=== PATIENT | male | born 1965 | race Caucasian/White ===

== ENCOUNTER → 2016-04-28 | Outpatient (REF) | payer OTHER ==
[~2016-04-28] MED LIST: ATOR40TA PO; CYCL10TA PO; GI COCKTAIL PO; IMIT50TA INJ; LISI-538 PO; LORT5TAB PO; MELO15TA4 PO; MELO7.5S PO; NAPR500T2 PO; NASA0.057; NORCOTAB PO; PAME25CA PO; PERCOCET PO; PRIL40CA PO; PROA1AER INH; SUCR1TA PO; SUMA20SP; TOPA50TA7 PO; TYLE650T30 PO; ZEST1TAB7 PO
== END ==
LOC: M LAB REF 16:15
PROVIDERS: ATTEND Physician Assistant
DX: Z11.3 Encounter for screening for infections with a predominantly sexual mode of transmission (principal)

== ENCOUNTER → 2016-07-10 | Outpatient (REF) | payer OTHER | LOC: M SFHCPLAZ 16:58 | PROVIDERS: ATTEND Family Medicine | DX: R23.4 Changes in skin texture (principal); L85.8 Other specified epidermal thickening ==

== ENCOUNTER → 2016-08-17 | Outpatient (REF) | payer OTHER | LOC: M LABNEURO 11:30 | PROVIDERS: ATTEND Family Medicine | DX: M62.89 Other specified disorders of muscle (principal) ==

== ENCOUNTER → 2016-08-17 | Outpatient (REF) | payer OTHER ==
[2016-08-17 11:55] LABS: INR 0.91
== END ==
LOC: M LABNEURO 11:31
PROVIDERS: ATTEND Physical Medicine & Rehabilitation
DX: Z01.818 Encounter for other preprocedural examination (principal); M50.31 Other cervical disc degeneration, high cervical region

== ENCOUNTER → 2016-10-14 | Outpatient (REF) | payer OTHER | LOC: M LABNEURO 15:29 | PROVIDERS: ATTEND Family Medicine | DX: E29.1 Testicular hypofunction (principal) ==

== ENCOUNTER → 2016-10-16 | Outpatient (CLI) | payer OTHER ==
--- NOTE | 2016-10-16 16:21 | REP ---
There are four views of a single digit of the left hand. There is an indicator identifying the location of the soft tissue injury. There is no fracture or dislocation. There is no foreign body. There are small accessory ossicles at the medial lateral margins of the DIP articulation. Mineralization and joint spaces are unremarkable. Impression: Essentially negative single digit of the left hand. Signed by Jake Lester MD 10/16/2016 04:13 P
== END ==
LOC: M LAB 15:43 → M RAD 15:44
PROVIDERS: ATTEND Family Medicine
DX: S69.92XA Unspecified injury of left wrist, hand and finger(s), initial encounter (principal); X58.XXXA Exposure to other specified factors, initial encounter; Y92.9 Unspecified place or not applicable

== ENCOUNTER → 2017-01-04 | Outpatient (REF) | payer OTHER ==
[~2017-01-04] MED LIST changes: -ATOR40TA PO; +ATOR40TA75 PO; -NAPR500T2 PO; +NAPR500T3 PO; +NASA0.0517; -NASA0.057; -PROA1AER INH; +PROAAER10 INH; -TOPA50TA7 PO; +TOPA50TA8 PO
== END ==
LOC: M SFHCPLAZ 08:14
PROVIDERS: ATTEND Nurse Practitioner Family
DX: E29.1 Testicular hypofunction (principal)

== ENCOUNTER → 2017-01-11 | Outpatient (REF) | payer OTHER ==
[2017-01-11 14:05] LABS: ANION GAP 8 MEQ/L (8-16); BLOOD UREA NITROGEN 21 MG/DL (7-18); CALCIUM LEVEL 8.4 MG/DL (8.5-10.1); CARBON DIOXIDE LEVEL 25 MEQ/L (21-32); CHLORIDE LEVEL 109 MEQ/L (98-107); CREATININE FOR GFR 1.32 MG/DL (0.70-1.30); GLOMERULAR FILTRATION RATE > 60.0 (>60); GLUCOSE, FASTING 89 MG/DL (70-105); MAGNESIUM LEVEL 2.4 MG/DL (1.8-2.4); POTASSIUM SERUM 4.5 MEQ/L (3.5-5.1); SODIUM LEVEL 142 MEQ/L (136-145)
[2017-01-11 14:42] LABS: FOLATE 18.4 NG/ML; VITAMIN B12 LEVEL 445 PG/ML
== END ==
LOC: M LABNEURO 11:47 → M SFHCPLAZ 11:47
PROVIDERS: ATTEND Family Medicine
DX: R20.2 Paresthesia of skin (principal)

== ENCOUNTER → 2017-04-16 | Outpatient (REF) | payer OTHER | LOC: M SFHCPLAZ 15:25 | PROVIDERS: ATTEND Family Medicine | DX: C44.519 Basal cell carcinoma of skin of other part of trunk (principal); L57.0 Actinic keratosis ==

== ENCOUNTER → 2017-05-14 | Outpatient (REF) | payer OTHER | LOC: M LAB REF 18:14 | DX: C44.599 Other specified malignant neoplasm of skin of other part of trunk (principal) | CPT/HCPCS: 88305 ==

== ENCOUNTER 2017-05-23 06:32 | Emergency (ER) | payer OTHER ==
[2017-05-23 07:57] LABS: BASO % 0.1 % (0.0-1.0); EOS # 0.1 10^3/uL (0.0-0.50); EOS % 0.7 % (0.0-3.0); HEMATOCRIT 40.9 % (42.0-52.0); HEMOGLOBIN 14.1 g/dl (14.0-18.0); IMMATURE GRANULOCYTE % 0.3 % (0-0); LYMPH # 1.4 10^3/uL (1.5-4.5); LYMPH % 20.4 % (24.0-44.0); MEAN CORPUSCULAR HEMOGLOBIN 32.6 pg (27.0-33.0); MEAN CORPUSCULAR HGB CONC 34.5 g/dl (32.0-36.5); MEAN CORPUSCULAR VOLUME 94.5 fl (80.0-96.0); MONO # 1.2 10^3/uL (0.0-0.8); MONO % 17.2 % (0.0-5.0); NEUTROPHILS # 4.3 10^3/uL (1.8-7.7); NEUTROPHILS % 61.3 % (36.0-66.0); PLATELET COUNT, AUTOMATED 228 10^3/uL (150-450); RED BLOOD COUNT 4.33 10^6/uL (4.30-6.10); RED CELL DISTRIBUTION WIDTH 13.9 % (11.5-14.5)
[2017-05-23] MEDS: KETOROLAC 30 MG/ML VIAL (J1885) IV (07:58)
[2017-05-23] MEDS: METOCLOPRAMIDE INJ 10MG/2ML VIAL (J2765) IV (07:58)
[2017-05-23 08:16] LABS: ANION GAP 6 MEQ/L (8-16); BLOOD UREA NITROGEN 12 MG/DL (7-18); C REACTIVE PROTEIN QUANTITATIV 1.18 MG/DL (0.00-0.30); CALCIUM LEVEL 8.6 MG/DL (8.5-10.1); CARBON DIOXIDE LEVEL 26 MEQ/L (21-32); CHLORIDE LEVEL 108 MEQ/L (98-107); CREATININE FOR GFR 1.16 MG/DL (0.70-1.30); GLOMERULAR FILTRATION RATE > 60.0 (>60); GLUCOSE, FASTING 108 MG/DL (70-100); SODIUM LEVEL 140 MEQ/L (136-145)
[2017-05-23 08:20] LABS: ERYTHROCYTE SEDIMENTATION RATE 13 mm/hr (0-15)
[2017-05-23] MEDS ORDERED: ISOVUE-370 76% 100ML VIAL (Q9967) As Ordered (08:22)
[2017-05-23] MEDS: MORPHINE 4 MG/ML 1ML SYRINGE IV (08:26)
== END 2017-05-23 09:57 | disposition home or self-care (01) ==
LOC: M ED 06:32
DX: K08.89 Other specified disorders of teeth and supporting structures (principal); F41.9 Anxiety disorder, unspecified; F33.9 Major depressive disorder, recurrent, unspecified; Z85.820 Personal history of malignant melanoma of skin; Z79.899 Other long term (current) drug therapy
CPT/HCPCS: Q9967

== ENCOUNTER → 2017-06-22 | Outpatient (REF) | payer MEDICAID ==
[2017-06-22 19:20] LABS: BASO # 0.1 10^3/uL (0.0-0.2); BASO % 0.6 % (0.0-1.0); EOS # 0.2 10^3/uL (0.0-0.50); EOS % 2.6 % (0.0-3.0); HEMOGLOBIN 14.5 g/dl (14.0-18.0); IMMATURE GRANULOCYTE % 1.2 % (0-3.0); LYMPH # 2.1 10^3/uL (1.5-4.5); LYMPH % 27.1 % (24.0-44.0); MEAN CORPUSCULAR HEMOGLOBIN 31.8 pg (27.0-33.0); MEAN CORPUSCULAR VOLUME 96.5 fl (80.0-96.0); MONO # 0.8 10^3/uL (0.0-0.8); MONO % 10.2 % (0.0-5.0); NEUTROPHILS # 4.5 10^3/uL (1.8-7.7); NEUTROPHILS % 58.3 % (36.0-66.0); PLATELET COUNT, AUTOMATED 338 10^3/uL (150-450); RED BLOOD COUNT 4.56 10^6/uL (4.30-6.10); RED CELL DISTRIBUTION WIDTH 12.9 % (11.5-14.5); WHITE BLOOD COUNT 7.8 10^3/uL (4.0-10.0)
[2017-06-22 19:42] LABS: ALBUMIN 4.1 GM/DL (3.2-5.2); ALBUMIN/GLOBULIN RATIO 1.05 (1.00-1.93); ALKALINE PHOSPHATASE 132 U/L (45-117); ALT/SGPT 38 U/L (12-78); ANION GAP 8 MEQ/L (8-16); AST/SGOT 20 U/L (7-37); BILIRUBIN,TOTAL 0.3 MG/DL (0.2-1.0); BLOOD UREA NITROGEN 22 MG/DL (7-18); CALCIUM LEVEL 9.4 MG/DL (8.5-10.1); CARBON DIOXIDE LEVEL 28 MEQ/L (21-32); CHLORIDE LEVEL 105 MEQ/L (98-107); CREATININE FOR GFR 1.05 MG/DL (0.70-1.30); GLOMERULAR FILTRATION RATE > 60.0 (>60); GLUCOSE, FASTING 79 MG/DL (70-100); POTASSIUM SERUM 4.8 MEQ/L (3.5-5.1); SODIUM LEVEL 141 MEQ/L (136-145)
[2017-06-25 00:07] LABS: FREE CARBAMAZEPINE,FREE TEGRET 1.2 ug/mL (0.6-4.2)
== END ==
LOC: M LABNEURO 12:08
DX: G50.0 Trigeminal neuralgia (principal); G43.719 Chronic migraine without aura, intractable, without status migrainosus

== ENCOUNTER → 2018-01-13 | Outpatient (REF) | payer OTHER ==
[2018-01-13 16:39] LABS: HEMATOCRIT 41.1 % (42.0-52.0); HEMOGLOBIN 13.7 g/dl (13.5-17.5); MEAN CORPUSCULAR HGB CONC 33.3 g/dl (32.0-36.5); PLATELET COUNT, AUTOMATED 340 10^3/uL (150-450); RED BLOOD COUNT 4.28 10^6/uL (4.30-6.10); RED CELL DISTRIBUTION WIDTH 12.5 % (11.5-14.5); WHITE BLOOD COUNT 6.6 10^3/uL (4.0-10.0)
[2018-01-13 16:51] LABS: ALBUMIN 3.8 GM/DL (3.2-5.2); ALBUMIN/GLOBULIN RATIO 1.12 (1.00-1.93); ALKALINE PHOSPHATASE 121 U/L (45-117); ALT/SGPT 26 U/L (12-78); ANION GAP 6 MEQ/L (8-16); AST/SGOT 19 U/L (7-37); BILIRUBIN,TOTAL 0.3 MG/DL (0.2-1.0); BLOOD UREA NITROGEN 15 MG/DL (7-18); CALCIUM LEVEL 9.1 MG/DL (8.5-10.1); CARBON DIOXIDE LEVEL 30 MEQ/L (21-32); CHLORIDE LEVEL 104 MEQ/L (98-107); CHOLESTEROL LEVEL 233 MG/DL (<200); CREATININE FOR GFR 1.01 MG/DL (0.70-1.30); GLOMERULAR FILTRATION RATE > 60.0 (>56); GLUCOSE, FASTING 83 MG/DL (70-100); HDL CHOLESTEROL 50 MG/DL (>40); LDL CHOLESTEROL 112 MG/DL (<100); NON-HDL-C 183 MG/DL; POTASSIUM SERUM 4.4 MEQ/L (3.5-5.1); SODIUM LEVEL 140 MEQ/L (136-145); TOTAL PROTEIN 7.2 GM/DL (6.4-8.2); TRIGLYCERIDES LEVEL 354 MG/DL (<150)
[2018-01-16 00:20] LABS: TESTOSTERONE FREE (DIRECT) 8.4 pg/mL (7.2-24.0)
== END ==
LOC: M LABNEURO 15:35
DX: E29.1 Testicular hypofunction (principal); Z13.220 Encounter for screening for lipoid disorders
CPT/HCPCS: 84403

== ENCOUNTER → 2018-03-25 | Outpatient (CLI) | payer OTHER | LOC: M RAD 17:37 | DX: R07.89 Other chest pain (principal); W10.8XXS Fall (on) (from) other stairs and steps, sequela; Y92.009 Unspecified place in unspecified non-institutional (private) residence as the place of occurrence of the external cause | CPT/HCPCS: 71101 ==

== ENCOUNTER → 2018-04-15 | Outpatient (CLI) | payer OTHER ==
[~2018-04-15] MED LIST changes: +CLEO300C2 PO; +MELO15TA28 PO; -MELO15TA4 PO; +NAPR-885 PO; -NAPR500T3 PO; +PERC5TAB12 PO; +REGL10TA6 PO
--- NOTE | 2018-04-15 10:15 | REP ---
RIGHT KNEE, FIVE VIEWS: HISTORY: Medial pain. Postoperative change is present. There is no acute fracture or dislocation. There is minimal narrowing of the medial knee joint space and patellofemoral joint space. There is mild narrowing of the lateral knee joint space. Osteophytes are present in the femur, tibia, and patella. IMPRESSION: Degenerative change as described above. Electronically Signed by Norm Goldsmith MD 04/15/2018 10:16 A
== END ==
LOC: M LAB 09:18
PROVIDERS: ATTEND Family Medicine
DX: M17.11 Unilateral primary osteoarthritis, right knee (principal)

== ENCOUNTER → 2018-08-22 | Outpatient (CLI) | payer OTHER ==
[~2018-08-22] MED LIST changes: +HYDR-3715 PO; -NORCOTAB PO
--- NOTE | 2018-08-23 06:35 | ECGEPIP ---
Stationary ECG Study [facility] Test Date: 2018-08-22 Pat Name: MARCEL CHEATHAM Department: Room: - Gender: M Mold Machine Operator: : 1965 Requested By: Jonathan Clinton @ [facility] Order Number: [id number] Reading MD: Eric Gonzalez Measurements Intervals [place] Rate: 88 P: 63 TX: 144 QRS: 57 QRSD: 110 T: 39 QT: 334 QTc: 406 Interpretive Statements Normal sinus rhythm with sinus arrhythmia Consider prior inferoposterior [place] Nonspecific ST-T wave abnormalities No significant change when compared to prior tracing of 05/23/2017 Electronically Signed On 08-23-2018 6:34:56 EDT by Eric Gonzalez
== END ==
LOC: M EKG 15:03
PROVIDERS: ATTEND Orthopaedic Surgery
DX: I10 Essential (primary) hypertension (principal)

== ENCOUNTER → 2018-11-01 | Outpatient (REF) | payer OTHER ==
[2018-11-01 13:43] LABS: APPEARANCE, URINE CLEAR (CLEAR); BACTERIA, URINE AUTO NEGATIVE (NEGATIVE); BILIRUBIN, URINE AUTO NEGATIVE (NEGATIVE); BLOOD, URINE BLOOD NEGATIVE (NEGATIVE); COLOR, URINE COLORLESS (YELLOW); GLUCOSE, URINE (UA) AUTO NEGATIVE (NEGATIVE); KETONE, URINE AUTO NEGATIVE (NEGATIVE); LEUKOCYTE ESTERASE, URINE AUTO NEGATIVE (NEGATIVE); NITRITE, URINE AUTO NEGATIVE (NEGATIVE); PROTEIN, URINE AUTO NEGATIVE (NEGATIVE); RBC, URINE AUTO 0 /HPF (0-3); SPECIFIC GRAVITY URINE AUTO 1.003 (1.002-1.035); SQUAMOUS EPITHELIAL CELL UR AU 0 /HPF (0-6); UROBILINOGEN, URINE AUTO 0.2 mg/dL (0.0-2.0); WBC, URINE AUTO 0 /HPF (0-3)
== END ==
LOC: M SFHCPLAZ 11:04
PROVIDERS: ATTEND Family Medicine
DX: R35.0 Frequency of micturition (principal)

== ENCOUNTER 2019-03-20 10:55 | Emergency (ER) | payer OTHER ==
[~2019-03-20] VITALS: Ht 180.3 cm; Wt 95.5 kg
--- NOTE | 2019-03-20 12:51 | REP ---
RIGHT KNEE SERIES: FIVE VIEWS. HISTORY: Injury. Comparison right knee radiographs are from April 15, 2018. Findings: The patient is status post ACL reconstruction surgery. There is advanced tibiofemoral spur formation. There is articular spurring of the superior pole of the patella. There is also nonarticular spurring of the patella at the quadriceps and patellar tendon insertions. IMPRESSION: Moderate osteoarthritis. Prior ACL reconstruction surgery changes. No fracture seen. Electronically Signed by Omar Mcgovern MD 03/20/2019 01:03 P
[2019-03-20 12:53] VITALS: BP 159/84
== END 2019-03-20 13:25 | disposition home or self-care (01) ==
LOC: M ED 10:55
DX: M17.11 Unilateral primary osteoarthritis, right knee (principal); I10 Essential (primary) hypertension; K21.9 Gastro-esophageal reflux disease without esophagitis; E78.5 Hyperlipidemia, unspecified; F41.9 Anxiety disorder, unspecified; F32.9 Major depressive disorder, single episode, unspecified; M54.9 Dorsalgia, unspecified; Z79.51 Long term (current) use of inhaled steroids; Z79.899 Other long term (current) drug therapy; Z85.820 Personal history of malignant melanoma of skin

== ENCOUNTER → 2019-05-15 | Outpatient (REF) | payer OTHER ==
[2019-05-15 13:39] LABS: HEMATOCRIT 42.9 % (42.0-52.0); HEMOGLOBIN 14.1 g/dl (13.5-17.5); MEAN CORPUSCULAR HEMOGLOBIN 32.2 pg (27.0-33.0); MEAN CORPUSCULAR HGB CONC 32.9 g/dl (32.0-36.5); MEAN CORPUSCULAR VOLUME 97.9 fl (80.0-96.0); PLATELET COUNT, AUTOMATED 304 10^3/uL (150-450); RED BLOOD COUNT 4.38 10^6/uL (4.30-6.10); WHITE BLOOD COUNT 7.5 10^3/uL (4.0-10.0)
[2019-05-15 13:51] LABS: ALBUMIN 4.2 GM/DL (3.2-5.2); BLOOD UREA NITROGEN 15 MG/DL (7-18); CALCIUM LEVEL 9.5 MG/DL (8.5-10.1); CARBON DIOXIDE LEVEL 27 MEQ/L (21-32); CHLORIDE LEVEL 106 MEQ/L (98-107); CREATININE FOR GFR 1.17 MG/DL (0.70-1.30); GLOMERULAR FILTRATION RATE > 60.0 (>56); GLUCOSE, FASTING 85 MG/DL (70-100); PHOSPHORUS LEVEL 2.8 MG/DL (2.5-4.9); POTASSIUM SERUM 4.4 MEQ/L (3.5-5.1); SODIUM LEVEL 140 MEQ/L (136-145)
== END ==
LOC: M SFHCPLAZ 11:07
PROVIDERS: ATTEND Family Medicine
DX: F90.9 Attention-deficit hyperactivity disorder, unspecified type (principal); R07.89 Other chest pain

== ENCOUNTER → 2019-05-22 | Outpatient (CLI) | payer OTHER ==
[~2019-05-22] MED LIST changes: +ADDE20CA3 PO; +ASPI81TA85 PO; +ATEN25TA PO; +AZEL1SPR3 NARES; +PERC10TA26 PO
[2019-05-22 12:55] LABS: HEMATOCRIT 48.5 % (42.0-52.0); HEMOGLOBIN 15.6 g/dl (13.5-17.5); MEAN CORPUSCULAR HEMOGLOBIN 30.8 pg (27.0-33.0); MEAN CORPUSCULAR HGB CONC 32.2 g/dl (32.0-36.5); MEAN CORPUSCULAR VOLUME 95.8 fl (80.0-96.0); PLATELET COUNT, AUTOMATED 334 10^3/uL (150-450); RED BLOOD COUNT 5.06 10^6/uL (4.30-6.10); WHITE BLOOD COUNT 9.7 10^3/uL (4.0-10.0)
[2019-05-22 13:04] LABS: INR 1.02; PROTHROMBIN TIME 13.1 SECONDS (11.8-14.0)
[2019-05-22 13:25] LABS: ALBUMIN 4.6 GM/DL (3.2-5.2); BILIRUBIN,TOTAL 0.5 MG/DL (0.2-1.0); CALCIUM LEVEL 9.8 MG/DL (8.5-10.1); CREATININE FOR GFR 1.37 MG/DL (0.70-1.30); GLOMERULAR FILTRATION RATE 58.3 (>56); POTASSIUM SERUM 4.9 MEQ/L (3.5-5.1); TOTAL PROTEIN 7.5 GM/DL (6.4-8.2)
[2019-05-22 13:36] LABS: ERYTHROCYTE SEDIMENTATION RATE 6 mm/hr (0-20)
--- NOTE | 2019-05-22 19:34 | REP ---
PA and lateral chest: Comparison is 07/31/2014. There is a comparison chest CT of 07/31/2014. The lung leavitt are clear. The cardiac size is normal. The radha, mediastinum, and skeletal structures are unremarkable. A faintly visible nodular density in the left mid lung is artifact from a rib bone island on the comparison CT. Impression: Negative PA and lateral chest. There is no interval change. Electronically Signed by Jake Lester MD 05/22/2019 07:25 P
== END ==
LOC: M LAB 11:38
PROVIDERS: ATTEND Family Medicine
DX: Z01.818 Encounter for other preprocedural examination (principal); M17.11 Unilateral primary osteoarthritis, right knee

== ENCOUNTER → 2019-05-22 | Outpatient (REF) | payer OTHER | LOC: M SFHCPLAZ 13:23 | PROVIDERS: ATTEND Family Medicine | DX: F90.9 Attention-deficit hyperactivity disorder, unspecified type (principal); R07.89 Other chest pain ==

== ENCOUNTER → 2019-05-22 | Outpatient (CLI) | payer OTHER ==
[2019-05-22 12:56] LABS: BASO % 0.4 % (0.0-1.0); EOS # 0.3 10^3/uL (0.0-0.5); EOS % 2.8 % (0.0-3.0); HEMATOCRIT 48.4 % (42.0-52.0); HEMOGLOBIN 15.7 g/dl (13.5-17.5); LYMPH # 2.1 10^3/uL (1.5-5.0); MEAN CORPUSCULAR HEMOGLOBIN 31.1 pg (27.0-33.0); MEAN CORPUSCULAR HGB CONC 32.4 g/dl (32.0-36.5); MEAN CORPUSCULAR VOLUME 95.8 fl (80.0-96.0); MONO # 1.1 10^3/uL (0.0-0.8); MONO % 11.3 % (0.0-5.0); NEUTROPHILS % 62.8 % (36.0-66.0); PLATELET COUNT, AUTOMATED 325 10^3/uL (150-450); RED BLOOD COUNT 5.05 10^6/uL (4.30-6.10); WHITE BLOOD COUNT 9.6 10^3/uL (4.0-10.0)
[2019-05-22 13:19] LABS: ALBUMIN 4.6 GM/DL (3.2-5.2); ALT/SGPT 98 U/L (12-78); BILIRUBIN,TOTAL 0.4 MG/DL (0.2-1.0); BLOOD UREA NITROGEN 24 MG/DL (7-18); CALCIUM LEVEL 9.5 MG/DL (8.5-10.1); CARBAMAZEPINE (TEGRETOL) LEVEL < 0.5 UG/ML (4.0-10.0); CARBON DIOXIDE LEVEL 32 MEQ/L (21-32); CHLORIDE LEVEL 96 MEQ/L (98-107); CREATININE FOR GFR 1.29 MG/DL (0.70-1.30); GLOMERULAR FILTRATION RATE > 60.0 (>56); GLUCOSE, FASTING 92 MG/DL (70-100); POTASSIUM SERUM 4.9 MEQ/L (3.5-5.1); SODIUM LEVEL 134 MEQ/L (136-145); TOTAL PROTEIN 7.7 GM/DL (6.4-8.2)
--- NOTE | 2019-05-25 00:49 | ECGEPIP ---
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
== END ==
LOC: M LAB 11:32
PROVIDERS: ATTEND Psychiatry & Neurology Neurology
DX: G50.0 Trigeminal neuralgia (principal)

== ENCOUNTER 2019-06-05 08:13 | Inpatient (IN) | payer OTHER ==
--- NOTE | 2019-06-02 12:38 | HPE ---
DATE OF ADMISSION: 06/05/2019 CHIEF COMPLAINT: Right knee pain. HISTORY OF PRESENT ILLNESS: Mikhail is a pleasant 53-year-old male with progressively worsening right knee pain and stiffness. He has failed to improve with conservative treatment. He has elected for surgery for his continued symptoms. He has pain with weightbearing activities and activities of daily living. X-rays of his knee are notable for advanced osteoarthritis of the right knee joint. He has consented for a right total knee arthroplasty by Dr. Jonathan Clinton. Medical optimization was performed by Dr. Danielle's office. ALLERGIES: No known allergies. CURRENT MEDICATIONS: - cyclobenzaprine 10 mg twice a day - atenolol 50 mg half a tablet twice a day - lisinopril 20 mg once a day - atorvastatin 40 mg a day - nortriptyline 15 mg once a day - Adderall 20 mg a day - Percocet three a day - sumatriptan 100 mg tablet PAST MEDICAL HISTORY: Includes: High blood pressure. High cholesterol. Anxiety. PAST SURGICAL HISTORY: Includes: Left and right ACL reconstruction. Left elbow surgery. 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 He does not smoke. Occasionally drinks alcohol. FAMILY HISTORY: Noncontributory. REVIEW OF SYSTEMS: This patient denies chest pain, heart palpitations, cough, wheezing, difficulty breathing and shortness of breath. He denies abdominal pain, nausea, vomiting, diarrhea or constipation. He denies recent upper respiratory infection or urinary tract infection symptoms. He does complain of persistent pain in his right knee. PHYSICAL EXAMINATION: GENERAL: He is a well-nourished, well-developed in no acute distress, alert male patient who ambulates with a moderate limp favoring his right lower extremity. He is not using assistive devices. VITAL SIGNS: He is 5 feet 11-1/2 inches tall, weighs 207 pounds, with a temperature of 96.5, blood pressure 130/80, pulse 60, respirations 17. Neck was supple without adenopathy or jugular venous distension. Lungs were clear to auscultation without rales or wheeze. Heart regular rate and rhythm. Abdomen: Bowel sounds were present. Extremities: Inspection of the knee revealed intact skin. The patient had decreased range of motion due to pain and stiffness. The limb is neurovascularly intact. LABORATORY DATA: Chest x-ray shows no acute cardiopulmonary disease processes. EKG showed sinus rhythm at 72 beats per minute. CBC was within normal limits. Sed rate was 6, glucose 85, BUN 25, creatinine 1.37 for a GFR of 58.3, sodium 134, potassium 4.9. ProTime 13.1, INR 1.02. IMPRESSION: Symptomatic osteoarthritis of the right knee joint. PLAN: The patient is consented for a right total knee arthroplasty by Dr. Jonathan Clinton. He is pending clearance through cardiology due to a stress test that is being done this afternoon. As long as everything checks out okay with that, we will go ahead as planned on Wednesday for a right total knee arthroplasty with Dr. Jonathan Clinton.
[~2019-06-05] VITALS: Ht 180.3 cm; Wt 96.2 kg
[~2019-06-05 08:13] MED LIST changes: +LR 1,000 ML IV ONE; +ceFAZolin SOD 2 GM in IV 1 EA IV ONE
[2019-06-05] MEDS ORDERED: LIDOCAINE 2% INJ 100 MG/5 ML SDV (FOR ANES.) As Ordered ONE (09:42)
[2019-06-05] MEDS ORDERED: propofoL 500 MG/50 ML VIAL As Ordered ONE (09:42)
[2019-06-05] MEDS ORDERED: dexameTHASONE 4 MG/ML 1ML VIAL (J1100) As Ordered ONE (09:42)
[2019-06-05] MEDS ORDERED: ONDANSETRON 4MG/2ML VIAL (J2405) As Ordered ONE (09:43)
[2019-06-05] MEDS ORDERED: MIDAZOLAM INJ 2 MG/2 ML VIAL (J2250) As Ordered ONE ×2 (10:01→10:47)
[2019-06-05] MEDS ORDERED: fentaNYL 100 MCG/2 ML INJECTION (J3010) As Ordered ONE (10:01)
[2019-06-05] MEDS ORDERED: VIAL MATE ADAPTER XX ONE (10:07)
[2019-06-05] MEDS ORDERED: VANCOMYCIN 1000 MG/20 ML VIAL (J3370) As Ordered ONE (10:08)
[2019-06-05] MEDS ORDERED: VANCOMYCIN HCL 1,000 MG, VIAL MATE ADAPTER 1 EACH in D5W 250 ML IV ONE ×2 (10:15→22:00)
[2019-06-05] MEDS ORDERED: BUPIVACAINE LIPOSOME/PF 1.3% 20ML VIAL (13.3MG/ML)(EXPAREL)(C9290 PER1MG) As Ordered ONE (10:29)
[2019-06-05] MEDS ORDERED: EPINEPHrine INJ 1 MG/ML 1ML VIAL As Ordered ONE (10:29)
[2019-06-05] MEDS ORDERED: ceFAZolin 1GM INJ (J0690 PER 500MG) As Ordered ONE (10:29)
[2019-06-05] MEDS ORDERED: TRANEXAMIC ACID 100 MG/ML 10ML VIAL As Ordered ONE (10:29)
--- NOTE | 2019-06-05 10:39 | IPN ---
DATE: 06/05/2019 The patient was seen and examined. He wishes to go ahead with a right total knee arthroplasty. He understands the nature of this, the risks of bleeding, infection, damage to nerves and vessels, persistent pain, wear loosening, blood clots, medical problems, , among others. I am anticipating him needing a posterior stabilized knee, but that can be determined intraoperatively.
[2019-06-05] MEDS ORDERED: fentaNYL 100 MCG/2 ML INJECTION (J3010) IV ONE (11:00)
[2019-06-05] MEDS ORDERED: MIDAZOLAM INJ 2 MG/2 ML VIAL (J2250) IV ONE (11:00)
[2019-06-05] MEDS ORDERED: ePHEDrine SULFATE 25 MG/5 ML(5MG/ML) SYRINGE As Ordered ONE (11:30)
[2019-06-05] MEDS ORDERED: PHENYLephrine HCL 500 MCG/5 ML (100MCG/ML) SYRINGE (J2370) As Ordered ONE (11:38)
[2019-06-05] MEDS ORDERED: propofoL 200 MG/20 ML VIAL As Ordered ONE ×2 (12:05→12:24)
[2019-06-05] MEDS ORDERED: EPINEPHrine INJ 1 MG/ML 1ML VIAL ONE (12:13)
[2019-06-05] MEDS ORDERED: ROPIvacaine 0.5% 30 ML INJECTION (J2795 PER 1MG) ONE (12:13)
[2019-06-05] MEDS ORDERED: dexameTHASONE 10 MG/1 ML VIAL PRES.FREE (J1100) ONE (12:13)
--- NOTE | 2019-06-05 13:11 | RO ---
DATE OF PROCEDURE: 06/05/2019 PREOPERATIVE DIAGNOSIS: Right knee osteoarthritis. POSTOPERATIVE DIAGNOSIS: Right knee osteoarthritis. PROCEDURE: Right total knee arthroplasty using a DePuy Attune rotating platform posterior stabilized, size 5 femur, size 6 tibial tray, 6 polyethylene, 35 patellar button. SURGEON: Dr. Jonathan Clinton CALENDER ROLL PRESS OPERATOR: Chantel Yuan ANESTHESIA: Spinal. ESTIMATED BLOOD LOSS: 50. COMPLICATIONS: None. DESCRIPTION OF PROCEDURE: The patient was taken to the operating room and placed in a supine position after spinal anesthesia was induced. The right lower extremity was prepped and draped in the usual sterile fashion. A time out was performed. Tourniquet was inflated. I then created a longitudinal incision over the anterior aspect of the knee and a medial parapatellar arthrotomy was performed per routine. This was technically pretty challenging because of his multiple previous surgeries and he had a lot of scar tissue and his fat pad was scarred, but I did remove some of this for visualization. I had some difficulty placing the retractors. I did a medial release as well. I flexed the knee up and used the canal initiating reamer followed by the intramedullary guide on the femoral side set at 5 degrees of valgus as a 9 mm cut. This was pinned in place and the distal femoral cut was made. I did actually take an extra 2 off distally because it seemed like the cut was a little bit on the thin side. This provided a better appearance. I then sized the femur to be a 5. The drill holes were placed in the end of the femur and the cutting block was secured. The remaining cuts were made, protecting soft tissues. I then prepared the tibia with the retractors being placed. The tibial alignment guide was placed in the appropriate amount of valgus and posterior slope. This was pinned in place at 4 off the low side which was medial and the proximal tibia cut was made. With some difficulty, I was able to remove this portion of bone. Again, the scar tissue made it much more challenging. I then prepared the box using the size 5 box guide. This was pinned in place. The remaining three cuts were made. I then removed the box guide. I had taken the posterior cruciate ligament (PCL) carefully with cautery and used the spacer blocks. The size 6 seemed to be the most appropriate. I then prepared the tibia and the size 6 tray fit very nicely. I then drilled and broached. The trial components were placed. Again, I was very pleased with the size 6. He had excellent flexion, excellent extension, excellent stability and alignment. I freehand cut the patella, removing about 7 mm of bone and it sized to be a 35. Then the drill holes were placed. I placed the drill holes in the end of the femur as well. I removed the trial components. I had previously used a cash posting representative to remove soft tissue and osteophytes from either side of the knee. I then irrigated copiously. The first assistant manager prepared the bone cement in the modern technique on the back table. I injected Exparel in the deep tissues. Once the surfaces were dried, I then cemented in the components, removed excess bone cement, brought the knee out into some extension, and held the patella on with a clamp. All excess bone cement had been removed. I again copiously irrigated as I had multiple times. The tranexamic acid (TXA) was placed in the deep tissues and then I began by closing the deep layer with interrupted #1 Vicryl suture. Running Stratafix was used in both directions for watertight closure, but I did irrigate prior to final wound closure the deep layer. I then irrigated and closed the subcu with #2-0 Vicryl and the skin with wendy. A sterile dressing was applied. The tourniquet had been deflated once the cement hardened. He was taken to recovery room in stable condition. There were no known complications. The plan will be routine postop. The first assistant manager was instrumental in holding retractors, assisting in mixing the bone cement and assisting in wound closure.
[2019-06-05] MEDS ORDERED: oxyCODONE 5MG TAB PO PRN (13:15)
[2019-06-05] MEDS ORDERED: LR 1,000 ML IV SCH ×2 (13:15→14:00)
[2019-06-05] MEDS ORDERED: MORPHINE 2 MG/ML 1ML VIAL (J2270) IV PRN (13:15)
[2019-06-05] MEDS ORDERED: ONDANSETRON 4MG/2ML VIAL (J2405) IV PRN (13:15)
[2019-06-05] MEDS ORDERED: ACETAMINOPHEN TAB 650MG DOSE (2X325MG) PO PRN (13:15)
[2019-06-05] MEDS ORDERED: PERCOCET 5MG/325MG TAB PO PRN (13:15)
[2019-06-05] MEDS ORDERED: fentaNYL 100 MCG/2 ML INJECTION (J3010) IV PRN (13:15)
[2019-06-05] MEDS ORDERED: MORPHINE 4 MG/ML 1ML VIAL/SYRINGE (J2270) IV PRN (14:00)
[2019-06-05] MEDS ORDERED: oxyCODONE 5MG TAB As Ordered ONE (14:18)
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
[2019-06-05] MEDS ORDERED: HYDROMORPHONE HCL 0.5 MG/ 0.5 ML SYRINGE (J1170 PER 1) As Ordered ONE ×2 (16:19→16:40)
[2019-06-05] MEDS: HYDROMORPHONE HCL 0.5 MG/ 0.5 ML SYRINGE (J1170 PER 1) IV PRN ×6 (16:22→20:24)
--- NOTE | 2019-06-05 16:37 | REP ---
Clinical: Status post knee replacement. Technique AP and cross-table lateral views. Findings: The patient is status post right knee replacement with normal positioning and appearance to the femoral and tibial components. Overlying postsurgical changes appreciated. Impression: Status post right knee replacement. Electronically Signed by Tobias Kate MD 06/05/2019 01:31 P
[2019-06-05 17:45] VITALS: BP 156/94
[2019-06-05 18:15] VITALS: BP 153/90
[2019-06-05 19:10] VITALS: BP 151/87
[2019-06-05 20:15] VITALS: BP 136/90
[2019-06-05] MEDS: ATENOLOL 12.5MG PER 1/2 TABLET PO SCH (20:23)
[2019-06-05] MEDS: ATORVASTATIN 20 MG TAB PO SCH (20:23)
[2019-06-05 21:15] VITALS: BP 132/82
[2019-06-05] MEDS: ONDANSETRON 4MG/2ML VIAL (J2405) IV PRN (22:12)
[2019-06-05] MEDS: PERCOCET 5MG/325MG TAB PO PRN (22:14)
[2019-06-05 22:15] VITALS: BP 133/84
[2019-06-06] MEDS: HYDROMORPHONE HCL 0.5 MG/ 0.5 ML SYRINGE (J1170 PER 1) IV PRN ×5 (00:42→21:04)
[2019-06-06 02:00] VITALS: BP 112/77
[2019-06-06] MEDS: PERCOCET 5MG/325MG TAB PO PRN ×3 (03:36→13:03)
[2019-06-06] MEDS: ONDANSETRON 4MG/2ML VIAL (J2405) IV PRN ×3 (05:34→15:18)
[2019-06-06 06:00] VITALS: BP 151/84
[2019-06-06] MEDS ORDERED: PERC5TAB12 PO (06:29)
[2019-06-06] MEDS ORDERED: XARE10TA PO (06:32)
[2019-06-06 06:33] LABS: HEMATOCRIT 37.7 % (42.0-52.0); HEMOGLOBIN 12.8 g/dl (13.5-17.5); MEAN CORPUSCULAR HEMOGLOBIN 31.5 pg (27.0-33.0); MEAN CORPUSCULAR VOLUME 92.9 fl (80.0-96.0); PLATELET COUNT, AUTOMATED 271 10^3/uL (150-450); RED BLOOD COUNT 4.06 10^6/uL (4.30-6.10); WHITE BLOOD COUNT 13.2 10^3/uL (4.0-10.0)
[2019-06-06 06:51] LABS: BLOOD UREA NITROGEN 12 MG/DL (7-18); CALCIUM LEVEL 9.2 MG/DL (8.5-10.1); CARBON DIOXIDE LEVEL 28 MEQ/L (21-32); CHLORIDE LEVEL 103 MEQ/L (98-107); CREATININE FOR GFR 0.98 MG/DL (0.70-1.30); GLOMERULAR FILTRATION RATE > 60.0 (>56); GLUCOSE, FASTING 111 MG/DL (70-100); POTASSIUM SERUM 3.7 MEQ/L (3.5-5.1); SODIUM LEVEL 138 MEQ/L (136-145)
[2019-06-06] MEDS: MOM 30ML SUSPENSION UDC PO SCH (08:34)
[2019-06-06] MEDS: ATENOLOL 12.5MG PER 1/2 TABLET PO SCH ×2 (08:35→21:02)
[2019-06-06] MEDS: MIRALAX *UNIT DOSE* 17GM PACKET PO SCH (08:36)
--- NOTE | 2019-06-06 08:57 | IPNPDOC ---
Subjective Date Seen The patient was seen on 06/06/19. Subjective Chief Complaint/HPI Pt this morning states that he didn't sleep well due to poor pain control. Ortho was going in to see him just after our visit. I spoke with them about his pain control which they will cont to manage. He has no other concerns, has been using IS. General: Reports: Fatigue Constitutional: Denies: Chills, Fever ENT: Denies: Head Aches Pulmonary: Denies: Dyspnea, Cough Cardiovascular: Denies: Chest Pain, Palpitations Gastrointestinal: Denies: Nausea, Vomiting, Abdominal Pain Musculoskeletal: Reports: Leg Pain Neurological: Denies: Weakness Psych: Reports: Mood Normal Objective Physical Examination General Exam: Positive: Alert, Cooperative, No Acute Distress ENT Exam: Positive: Mucous membr. moist/pink Chest Exam: Positive: Clear to auscultation, Normal air movement Heart Exam: Positive: Rate Normal, Normal S1, Normal S2 Abdomen Exam: Positive: Normal bowel sounds, Soft; Negative: Tenderness Neuro Exam: Positive: Normal Speech Psych Exam: Positive: Mood NL Assessment /Plan Problems (1) Osteoarthritis of right knee Status: Chronic Problem Specific Plan: Monitor Clinically Problem Text: S/p total knee, pain mgmt, anticoag and bowel care per Ortho. (2) HTN (hypertension) Status: Chronic Response to Treatment: Stable Problem Text: As an outpt pt on lisinoprl 20 mg daily and atenolol 25 mg twice daily, currently taking atenolol 12.5 mg BID, monitor pressures. Plan/VTE VTE Prophylaxis Ordered?: Yes VS, I&O, 24H, Fishbone Vital Signs/I&O Vital Signs Date Time Temp Pulse Resp B/P (MAP) Pulse Ox O2 Delivery O2 Flow Rate FiO2 06/06/19 08:36 18 Room Air 06/06/19 08:35 91 151/84 06/06/19 06:00 98.4 97 06/05/19 10:40 2 I&O- Last 24 Hours up to 6 AM 06/06/19 06:00 Intake Total 4425 ml Output Total 4700 ml Balance -275 ml Laboratory Data 24H LABS Laboratory Tests 2 06/06/19 05:51: Nucleated Red Blood Cells % (auto) 0.0, Anion Gap 7L, Glomerular Filtration Rate > 60.0, Calcium Level 9.2 CBC/BMP Laboratory Tests 06/06/19 05:51 PIO ALSTON PA-C Jun 06, 2019 08:57
[2019-06-06 09:00] VITALS: BP 158/95
[2019-06-06 13:39] VITALS: BP 154/94
[2019-06-06] MEDS ORDERED: RIVAROXABAN 10 MG TAB (XARELTO) PO SCH (18:00)
[2019-06-06] MEDS ORDERED: CYCLOBENZAPRINE 10 MG TAB PO PRN (19:30)
[2019-06-06] MEDS ORDERED: LORazepam 0.5 MG TAB PO PRN (19:45)
[2019-06-06] MEDS ORDERED: NALOXONE INJ 0.4 MG/1 ML VIAL (J2310) IV PRN (19:45)
[2019-06-06] MEDS ORDERED: PROMETHAZINE INJ 25 MG/ML VIAL (J2550) IV PRN (19:45)
[2019-06-06] MEDS: MORPHINE 15 MG SA TAB PO SCH (20:04)
[2019-06-06] MEDS ORDERED: NORTRIPTYLINE 25 MG CAP PO SCH (21:00)
[2019-06-06] MEDS: ATORVASTATIN 20 MG TAB PO SCH (21:02)
[2019-06-06 22:00] VITALS: BP 113/64
[2019-06-07] MEDS: HYDROMORPHONE HCL 0.5 MG/ 0.5 ML SYRINGE (J1170 PER 1) IV PRN (01:39)
[2019-06-07] MEDS ORDERED: ACETAMINOPHEN TAB 650MG DOSE (2X325MG) PO PRN (05:30)
[2019-06-07] MEDS: ONDANSETRON 4MG/2ML VIAL (J2405) IV PRN (05:49)
[2019-06-07 06:00] VITALS: BP 138/89
[2019-06-07 07:56] VITALS: BP 137/86
[2019-06-07] MEDS ORDERED: XARE10TA PO (07:56)
[2019-06-07] MEDS ORDERED: MORP15TASA PO ×2 (07:57→08:00)
[2019-06-07] MEDS: MORPHINE 15 MG SA TAB PO SCH (08:11)
[2019-06-07 08:51] VITALS: BP 137/86
[2019-06-07] MEDS: ATENOLOL 12.5MG PER 1/2 TABLET PO SCH (08:51)
[2019-06-07] MEDS: MIRALAX *UNIT DOSE* 17GM PACKET PO SCH (08:52)
[2019-06-07] MEDS: MOM 30ML SUSPENSION UDC PO SCH (08:52)
[2019-06-07 10:21] VITALS: BP 137/86
[2019-06-07] MEDS ORDERED: PERCOCET 5MG/325MG TAB PO PRN ×2 (10:45)
[2019-06-07 14:00] VITALS: BP 156/93
--- NOTE | 2019-06-10 14:17 | DSES ---
DATE OF ADMISSION: 06/05/2019 DATE OF DISCHARGE: 06/07/2019 ATTENDING PHYSICIAN: Dr. Jonathan Clinton. ADMISSION DIAGNOSIS: Right knee osteoarthritis. OTHER DIAGNOSES: 1. Hypertension. 2. Hyperlipidemia. 3. Anxiety. DISCHARGE DIAGNOSIS: Right knee osteoarthritis status post right total knee arthroplasty. HISTORY: Patient is a 53-year-old male that had progressively worsening right knee pain and stiffness. He failed to improve with conservative measures. He continued to have symptoms with weightbearing activities and activities of daily living. He consented for elective right total knee arthroplasty with Dr. Clinton for his continued symptoms. OPERATION PERFORMED: Right total knee arthroplasty. HOSPITAL COURSE: The patient underwent a right total knee arthroplasty under spinal anesthesia, which was uneventful. His hospital course was without complication and he was up with physical therapy per their protocol, weightbearing as tolerated on the right lower extremity. Patient was discharged on oral pain medications and will resume his preoperative medications and diet. He will use his thromboembolic deterrent stockings and take his anticoagulant as directed to prevent deep venous thrombosis. Patient will follow up in our office in 12-14 days for a wound check and staple removal. He is encouraged to contact our office sooner if there is any increase in pain, redness, drainage, numbness or tingling in the extremity, fever greater than 101 degrees or any other concerns. Please see medical record for additional details.
== END 2019-06-07 14:40 | disposition home or self-care (01) | DRG 302 ==
LOC: M OR 08:13 → M MS5PR 17:25
PROVIDERS: ADMIT Orthopaedic Surgery; ATTEND Orthopaedic Surgery
PROC: 0SRC0J9 Replacement of Right Knee Joint with Synthetic Substitute, Cemented, Open Approach (ICD-10-PCS; principal; 2019-06-05 10:25)
DX: M17.11 Unilateral primary osteoarthritis, right knee (principal); I11.9 Hypertensive heart disease without heart failure; E78.5 Hyperlipidemia, unspecified; F41.9 Anxiety disorder, unspecified; M50.30 Other cervical disc degeneration, unspecified cervical region; J30.9 Allergic rhinitis, unspecified; G43.909 Migraine, unspecified, not intractable, without status migrainosus; F90.9 Attention-deficit hyperactivity disorder, unspecified type; Z79.51 Long term (current) use of inhaled steroids; Z79.01 Long term (current) use of anticoagulants; Z79.899 Other long term (current) drug therapy

== ENCOUNTER → 2019-08-04 | Outpatient (REF) | payer OTHER ==
[~2019-08-04] MED LIST changes: +CYCL-707 PO; -CYCL10TA PO; -LR 1,000 ML IV ONE; +MORP15TASA PO; +XARE10TA PO; -ceFAZolin SOD 2 GM in IV 1 EA IV ONE
== END ==
LOC: M SFHCPLAZ 09:50
PROVIDERS: ATTEND Family Medicine
DX: L98.499 Non-pressure chronic ulcer of skin of other sites with unspecified severity (principal)

== ENCOUNTER → 2019-11-02 | Outpatient (CLI) | payer OTHER ==
[~2019-11-02] MED LIST changes: -ASPI81TA85 PO; +ASPI81TA86 PO
[2019-11-02 16:50] LABS: HEMATOCRIT 43.8 % (42.0-52.0); HEMOGLOBIN 14.6 g/dl (13.5-17.5); MEAN CORPUSCULAR HEMOGLOBIN 31.2 pg (27.0-33.0); MEAN CORPUSCULAR HGB CONC 33.3 g/dl (32.0-36.5); MEAN CORPUSCULAR VOLUME 93.6 fl (80.0-96.0); PLATELET COUNT, AUTOMATED 345 10^3/uL (150-450); RED BLOOD COUNT 4.68 10^6/uL (4.30-6.10); WHITE BLOOD COUNT 9.6 10^3/uL (4.0-10.0)
[2019-11-02 17:25] LABS: ALBUMIN 4.3 GM/DL (3.2-5.2); BILIRUBIN,TOTAL 0.4 MG/DL (0.2-1.0); CALCIUM LEVEL 9.5 MG/DL (8.5-10.1); CHOLESTEROL RISK RATIO 4.5 (<5); CREATININE FOR GFR 1.73 MG/DL (0.70-1.30); GLOMERULAR FILTRATION RATE 44.4 (>56); POTASSIUM SERUM 4.6 MEQ/L (3.5-5.1); TOTAL PROTEIN 7.7 GM/DL (6.4-8.2)
[2019-11-03 13:19] LABS: CREATININE, URINE 63.4 MG/DL; MALB URINE SIEMENS 6.4 MG/L
[2019-11-05 08:10] LABS: TESTOSTERONE FREE (DIRECT) 7.5 pg/mL (7.2-24.0)
== END ==
LOC: M LAB 16:09
PROVIDERS: ATTEND Family Medicine
DX: E29.1 Testicular hypofunction (principal); E78.5 Hyperlipidemia, unspecified; I10 Essential (primary) hypertension

== ENCOUNTER → 2020-03-04 | Outpatient (CLI) | payer OTHER ==
--- NOTE | 2020-03-04 14:09 | REP ---
INDICATION: PRESCENCE OF RT ARTIFICAL KNEE JOINT. Evaluate for loosening or infection. Patient reports a recent spider bite right lower extremity. COMPARISON: None. TECHNIQUE: 22.0 mCi technetium 99 M MDP is injected and standard 3 phase imaging of the knees is acquired. Delayed scan images of the calves and ankles are added. FINDINGS: Anterior and posterior flow study is unremarkable Blood pool images demonstrate subtle increase in blood pool activity in and about the right knee arthroplasty components medially and laterally. Delayed scan images demonstrate expected arthroplasty bone interface uptake in the distal femur and proximal tibia. There is arthritic uptake in the medial compartment of the left knee. There is no focally increased uptake at any site associated with the right knee prosthesis to suggest loosening. Calf and ankle imaging shows midfoot uptake consistent with mild arthritis on the left. IMPRESSION: Expected prosthetic bone interface uptake associated with the right knee arthroplasty. No scintigraphic evidence of loosening or infection. Arthritic uptake pattern in the left knee. <Electronically signed by Darian Mcgovern > 03/04/20 [id number]
== END ==
LOC: M RAD 09:13
PROVIDERS: ATTEND Orthopaedic Surgery
DX: Z96.651 Presence of right artificial knee joint (principal)

== ENCOUNTER → 2020-05-29 | Outpatient (CLI) | payer OTHER ==
[~2020-05-29] MED LIST changes: -LISI-538 PO; +LISI20TA33 PO
--- NOTE | 2020-05-29 13:06 | REPPI ---
INDICATION: COUGH COMPARISON: 05/22/2019 TECHNIQUE: PA and lateral. FINDINGS: The mediastinum and cardiac silhouette are normal. The lung leavitt demonstrate chronic changes without acute consolidation, effusion, or pneumothorax. The skeletal structures are intact and normal. IMPRESSION: No acute cardiopulmonary process, focal consolidation or effusion. <Electronically signed by Tobias Kate > 05/29/20 [id number]
== END ==
LOC: M PLAIMG 12:43
PROVIDERS: ATTEND Family Medicine
DX: R05 Cough (principal)

== ENCOUNTER → 2020-05-31 | Outpatient (REF) | payer OTHER ==
[~2020-05-31] MED LIST changes: +LISI-538 PO; -LISI20TA33 PO
[2020-05-31 21:45] LABS: CHLAMYDIA DNA AMPLIFICATION NEGATIVE (NEGATIVE); GC DNA AMPLIFICATION NEGATIVE (NEGATIVE)
== END ==
LOC: M WUC 12:00
PROVIDERS: ATTEND Physician Assistant
DX: R30.0 Dysuria (principal)

== ENCOUNTER → 2020-10-15 | Outpatient (REF) | payer OTHER ==
[~2020-10-15] MED LIST changes: -LISI-538 PO; +LISI20TA33 PO
[2020-10-15 14:34] LABS: ALBUMIN 4.1 GM/DL (3.2-5.2); ALT/SGPT 36 U/L (12-78); BILIRUBIN,TOTAL 0.3 MG/DL (0.2-1.0); BLOOD UREA NITROGEN 28 MG/DL (7-18); CALCIUM LEVEL 9.4 MG/DL (8.5-10.1); CARBON DIOXIDE LEVEL 30 MEQ/L (21-32); CHLORIDE LEVEL 104 MEQ/L (98-107); CHOLESTEROL LEVEL 201 MG/DL (<200); CHOLESTEROL RISK RATIO 6.931 (<5); CREATININE FOR GFR 1.48 MG/DL (0.70-1.30); GLOMERULAR FILTRATION RATE 53.1 (>56); GLUCOSE, FASTING 103 MG/DL (70-100); HDL CHOLESTEROL 29 MG/DL (>40); NON-HDL-C 172 MG/DL; POTASSIUM SERUM 4.8 MEQ/L (3.5-5.1); SODIUM LEVEL 138 MEQ/L (136-145); TOTAL PROTEIN 6.9 GM/DL (6.4-8.2); TRIGLYCERIDES LEVEL 413 MG/DL (<150)
[2020-10-16 15:15] LABS: MALB URINE SIEMENS 7.8 MG/L; MAU/CREAT RATIO 7.3 MCG/MG (0.0-30.0)
[2020-10-17 17:08] LABS: TESTOSTERONE FREE (DIRECT) 9.7 pg/mL (7.2-24.0)
== END ==
LOC: M SFHCPLAZ 10:41
PROVIDERS: ATTEND Family Medicine
DX: I10 Essential (primary) hypertension (principal); G89.4 Chronic pain syndrome; E29.1 Testicular hypofunction

== ENCOUNTER → 2020-11-14 | Outpatient (REF) | payer OTHER | LOC: M LAB REF 18:36 | PROVIDERS: ATTEND Family Medicine | DX: L57.0 Actinic keratosis (principal); D04.39 Carcinoma in situ of skin of other parts of face; Z85.828 Personal history of other malignant neoplasm of skin ==

== ENCOUNTER → 2020-12-26 | Outpatient (REF) | payer OTHER | LOC: M SFHCPLAZ 10:18 | PROVIDERS: ATTEND Family Medicine | DX: D04.39 Carcinoma in situ of skin of other parts of face (principal); L57.0 Actinic keratosis; L90.5 Scar conditions and fibrosis of skin ==

== ENCOUNTER → 2021-05-22 | Outpatient (CLI) | payer OTHER ==
[~2021-05-22] MED LIST changes: -SUMA20SP; +SUMA20SP4
== END ==
LOC: M LABSMTC 12:07
PROVIDERS: ATTEND Orthopaedic Surgery
DX: Z11.52 Encounter for screening for COVID-19 (principal)

== ENCOUNTER → 2021-12-08 | Outpatient (REF) | payer OTHER ==
[2021-12-09 01:18] LABS: GC DNA AMPLIFICATION NEGATIVE (NEGATIVE)
== END ==
LOC: M LAB REF 21:28
PROVIDERS: ATTEND Physician Assistant
DX: R30.0 Dysuria (principal)

== ENCOUNTER → 2022-01-05 | Outpatient (CLI) | payer OTHER ==
[~2022-01-05] MED LIST changes: +CEPH500C
== END ==
LOC: M LABSMTC 10:26
PROVIDERS: ATTEND Anesthesiology
DX: Z01.818 Encounter for other preprocedural examination (principal); Z11.52 Encounter for screening for COVID-19

== ENCOUNTER → 2022-01-07 | Outpatient (CLI) | payer OTHER | LOC: M SOG 13:14 | PROVIDERS: ATTEND Orthopaedic Surgery | DX: M50.322 Other cervical disc degeneration at C5-C6 level (principal) ==

== ENCOUNTER 2022-01-08 08:51 | Day surgery (SDC) | payer OTHER ==
[~2022-01-08] VITALS: Ht 180.3 cm; Wt 85.6 kg
[~2022-01-08 08:51] MED LIST changes: +NS 1,000 ML IV ONE
[2022-01-08] MEDS ORDERED: propofoL 200 MG/20 ML VIAL As Ordered ONE (10:25)
[2022-01-08] MEDS ORDERED: LIDOCAINE 2% MDV 20ML VIAL As Ordered ONE (10:25)
[2022-01-08 11:00] VITALS: BP 137/99
== END 2022-01-08 11:24 | disposition home or self-care (01) ==
LOC: M OPP 08:51
PROVIDERS: ATTEND Internal Medicine Gastroenterology
DX: Z12.11 Encounter for screening for malignant neoplasm of colon (principal); K63.5 Polyp of colon; K57.30 Diverticulosis of large intestine without perforation or abscess without bleeding; K64.4 Residual hemorrhoidal skin tags; K64.8 Other hemorrhoids; Z79.51 Long term (current) use of inhaled steroids; Z79.899 Other long term (current) drug therapy; I10 Essential (primary) hypertension; G43.909 Migraine, unspecified, not intractable, without status migrainosus; E78.5 Hyperlipidemia, unspecified; F32.9 Major depressive disorder, single episode, unspecified; F41.9 Anxiety disorder, unspecified; F90.9 Attention-deficit hyperactivity disorder, unspecified type; N40.0 Benign prostatic hyperplasia without lower urinary tract symptoms; Z86.14 Personal history of Methicillin resistant Staphylococcus aureus infection

== ENCOUNTER → 2022-01-13 | Outpatient (CLI) | payer OTHER ==
[~2022-01-13] MED LIST changes: -NS 1,000 ML IV ONE
== END ==
LOC: M PLAIMG 09:55
PROVIDERS: ATTEND Family Medicine
DX: M48.02 Spinal stenosis, cervical region (principal)

== ENCOUNTER → 2022-02-10 | Outpatient (REF) | payer OTHER | LOC: M LAB REF 16:26 | PROVIDERS: ATTEND Physician Assistant | DX: J02.9 Acute pharyngitis, unspecified (principal) ==

== ENCOUNTER → 2022-05-11 | Outpatient (CLI) | payer OTHER | LOC: M PLALAB 14:44 | PROVIDERS: ATTEND Physician Assistant Surgical | DX: M25.569 Pain in unspecified knee (principal); Z48.89 Encounter for other specified surgical aftercare; Z96.651 Presence of right artificial knee joint ==

== ENCOUNTER → 2022-05-29 | Outpatient (CLI) | payer OTHER ==
[2022-05-29 15:38] LABS: BASO % 0.4 % (0.0-1.0); EOS # 0.2 10^3/uL (0.0-0.5); EOS % 2.9 % (0.0-3.0); HEMOGLOBIN 13.1 g/dl (13.5-17.5); LYMPH % 25.9 % (24.0-44.0); MEAN CORPUSCULAR HGB CONC 32.8 g/dl (32.0-36.5); MEAN CORPUSCULAR VOLUME 97.8 fl (80.0-96.0); MONO # 0.9 10^3/uL (0.0-0.8); MONO % 11.9 % (2.0-8.0); NEUTROPHILS # 4.4 10^3/uL (1.5-8.5); NEUTROPHILS % 58.5 % (36.0-66.0); PLATELET COUNT, AUTOMATED 297 10^3/uL (150-450); RED BLOOD COUNT 4.09 10^6/uL (4.30-6.10); WHITE BLOOD COUNT 7.6 10^3/uL (4.0-10.0)
[2022-06-03 23:08] LABS: CANNABINOID, URINE Positive (Cutoff=20); CARBOXY THC (GC/MS) >300 ng/mL (Cutoff=10); CREATININE, URINE 89.9 mg/dL (20.0-300.0); OPIATES, URINE Negative ng/mL (Cutoff=300); OXYCODONE URINE Positive (.); OXYCODONE, URINE CONFIRM 2587 ng/mL (Cutoff=100); OXYCODONE/OXYMORPH, URINE Positive (Cutoff=100); OXYMORPHONE, URINE Positive (.); OXYMORPHONE, URINE CONFIRM 1864 ng/mL (Cutoff=100)
== END ==
LOC: M PLALAB 12:15
PROVIDERS: ATTEND Family Medicine
DX: R05.9 Cough, unspecified (principal); F90.9 Attention-deficit hyperactivity disorder, unspecified type; G89.4 Chronic pain syndrome

== ENCOUNTER → 2022-12-08 | Outpatient (CLI) | payer OTHER | LOC: M RAD 17:48 | PROVIDERS: ATTEND Physician Assistant | DX: S50.852A Superficial foreign body of left forearm, initial encounter (principal); Y93.9 Activity, unspecified; Y92.9 Unspecified place or not applicable ==

== ENCOUNTER → 2023-01-29 | Outpatient (REF) | payer OTHER ==
[2023-01-29 16:49] LABS: APPEARANCE, URINE CLEAR (CLEAR); BACTERIA, URINE AUTO NEGATIVE (NEGATIVE); BILIRUBIN, URINE AUTO NEGATIVE (NEGATIVE); BLOOD, URINE BLOOD NEGATIVE (NEGATIVE); COLOR, URINE STRAW (YELLOW); GLUCOSE, URINE (UA) AUTO NEGATIVE (NEGATIVE); KETONE, URINE AUTO NEGATIVE (NEGATIVE); LEUKOCYTE ESTERASE, URINE AUTO NEGATIVE (NEGATIVE); NITRITE, URINE AUTO NEGATIVE (NEGATIVE); PROTEIN, URINE AUTO NEGATIVE (NEGATIVE); RBC, URINE AUTO 0 /HPF (0-3); SPECIFIC GRAVITY URINE AUTO 1.011 (1.002-1.035); SQUAMOUS EPITHELIAL CELL UR AU 0 /HPF (0-6); UROBILINOGEN, URINE AUTO 0.2 mg/dL (0.0-2.0); WBC, URINE AUTO 0 /HPF (0-3)
== END ==
LOC: M LAB REF 16:17
PROVIDERS: ATTEND Physician Assistant
DX: N39.0 Urinary tract infection, site not specified (principal)

== ENCOUNTER → 2023-01-29 | Outpatient (CLI) | payer OTHER | LOC: M RAD 17:02 | PROVIDERS: ATTEND Physician Assistant | DX: R10.9 Unspecified abdominal pain (principal) ==

== ENCOUNTER → 2023-05-03 | Outpatient (CLI) | payer OTHER ==
[2023-05-03 19:44] LABS: HEMATOCRIT 38.8 % (42.0-52.0); HEMOGLOBIN 12.5 g/dl (13.5-17.5); MEAN CORPUSCULAR HEMOGLOBIN 31.5 pg (27.0-33.0); MEAN CORPUSCULAR HGB CONC 32.2 g/dl (32.0-36.5); MEAN CORPUSCULAR VOLUME 97.7 fl (80.0-96.0); PLATELET COUNT, AUTOMATED 656 10^3/uL (150-450); RED BLOOD COUNT 3.97 10^6/uL (4.30-6.10); WHITE BLOOD COUNT 9.2 10^3/uL (4.0-10.0)
[2023-05-03 20:07] LABS: ALBUMIN 3.8 G/DL (3.2-5.2); ALKALINE PHOSPHATASE 105 U/L (46-116); ALT/SGPT 26 U/L (7.0-40); AST/SGOT 19 U/L (<34); BILIRUBIN,TOTAL 0.3 MG/DL (0.3-1.2); BLOOD UREA NITROGEN 29 MG/DL (9-23); CARBON DIOXIDE LEVEL 29 MMOL/L (20-31); CHLORIDE LEVEL 104 MMOL/L (98-107); CHOLESTEROL LEVEL 191 MG/DL (<200); CHOLESTEROL RISK RATIO 4.26 (<5); GLOMERULAR FILTRATION RATE > 60.0 (>56); GLUCOSE, FASTING 104 MG/DL (60-100); HDL CHOLESTEROL 44.8 MG/DL (>40); NON-HDL-C 146.2 MG/DL; POTASSIUM SERUM 4.4 MMOL/L (3.5-5.1); SODIUM LEVEL 137 MMOL/L (136-145); TRIGLYCERIDES LEVEL 281 MG/DL (<150)
[2023-05-03 20:08] LABS: FOLATE > 24.00 NG/ML (>5.4)
[2023-05-03 20:09] LABS: VITAMIN B12 LEVEL 1049 PG/ML (211-911)
[2023-05-05 11:09] LABS: TESTOSTERONE FREE (DIRECT) 7.2 pg/mL (7.2-24.0)
== END ==
LOC: M WUC 15:35
PROVIDERS: ATTEND Family Medicine
DX: E29.1 Testicular hypofunction (principal); F10.10 Alcohol abuse, uncomplicated; F90.9 Attention-deficit hyperactivity disorder, unspecified type; G89.4 Chronic pain syndrome; E78.5 Hyperlipidemia, unspecified; Z13.29 Encounter for screening for other suspected endocrine disorder

== ENCOUNTER → 2023-07-16 | Outpatient (CLI) | payer OTHER ==
[~2023-07-16] MED LIST changes: +ASPI81TA26 PO; +CELE1CAP99 PO; +SILD100T PO; +VALA500T5 PO
== END ==
LOC: M EKG 12:41
PROVIDERS: ATTEND Anesthesiology
DX: Z01.818 Encounter for other preprocedural examination (principal); K21.9 Gastro-esophageal reflux disease without esophagitis; R03.0 Elevated blood-pressure reading, without diagnosis of hypertension

== ENCOUNTER 2023-07-19 06:47 | Day surgery (SDC) | payer OTHER ==
[~2023-07-19] VITALS: Ht 180.3 cm; Wt 86.9 kg
[2023-07-19] MEDS: LR 1,000 ML IV SCH (08:28)
[2023-07-19] MEDS ORDERED: LIDOCAINE 2% 100MG/5ML SDV (FOR ANES.) As Ordered ONE (08:44)
[2023-07-19] MEDS ORDERED: MIDAZOLAM INJ 2MG/2ML VIAL As Ordered ONE (08:44)
[2023-07-19] MEDS ORDERED: propofoL 200 MG/20 ML VIAL As Ordered ONE (08:44)
[2023-07-19] MEDS ORDERED: fentaNYL 100 MCG/2 ML INJECTION As Ordered ONE (08:44)
[2023-07-19] MEDS ORDERED: ONDANSETRON 4MG 2ML VIAL As Ordered ONE (09:14)
[2023-07-19] MEDS ORDERED: KETOROLAC 60MG 2ML VIAL As Ordered ONE (09:14)
[2023-07-19] MEDS ORDERED: METOCLOPRAMIDE INJ 10MG/2ML VIAL As Ordered ONE (09:14)
[2023-07-19] MEDS ORDERED: GLYCOPYRROLATE INJ 0.2 MG/ML 2 ML VIAL As Ordered ONE (09:22)
[2023-07-19] MEDS ORDERED: ACETAMINOPHEN 1000MG 100ML IV BAG As Ordered ONE (09:22)
[2023-07-19] MEDS: ceFAZolin 2 GM/D5W 50 ML IV BAG As Ordered ONE (09:25)
[2023-07-19] MEDS ORDERED: oxyCODONE 5MG TAB PO PRN (10:10)
[2023-07-19] MEDS ORDERED: ONDANSETRON 4MG 2ML VIAL IV PRN (10:10)
[2023-07-19] MEDS ORDERED: LR 1,000 ML IV SCH (10:10)
[2023-07-19] MEDS ORDERED: HYDROMORPHONE HCL 0.5 MG/ 0.5 ML SYRINGE IV PRN (10:10)
[2023-07-19] MEDS ORDERED: fentaNYL 100 MCG/2 ML INJECTION IV PRN (10:10)
[2023-07-19 11:33] VITALS: BP 145/79; TEMP 98.2; O2SAT 100
== END 2023-07-19 11:44 | disposition home or self-care (01) ==
LOC: M SDC 06:47
PROVIDERS: ATTEND Orthopaedic Surgery Hand Surgery
DX: G56.01 Carpal tunnel syndrome, right upper limb (principal); G56.21 Lesion of ulnar nerve, right upper limb; G47.9 Sleep disorder, unspecified; Z79.899 Other long term (current) drug therapy
CPT/HCPCS: 24999; 29848; J0131; J0665; J0690; J1100; J1885; J2250; J2405; J2765; J3010

== ENCOUNTER → 2023-07-30 | Outpatient (CLI) | payer MEDICAID | LOC: M OUTALCOH 13:38 | PROVIDERS: ATTEND Psychiatry & Neurology Psychiatry | DX: Z03.89 Encounter for observation for other suspected diseases and conditions ruled out (principal); F12.10 Cannabis abuse, uncomplicated ==

== ENCOUNTER 2023-08-05 14:01 | Outpatient (RCR) | payer MEDICAID | END 2023-08-24 | LOC: M OUTALCOH 14:01 | PROVIDERS: ATTEND Psychiatry & Neurology Psychiatry | DX: F12.10 Cannabis abuse, uncomplicated (principal); Z03.89 Encounter for observation for other suspected diseases and conditions ruled out ==

== ENCOUNTER → 2023-08-30 | Outpatient (CLI) | payer MEDICAID, OTHER ==
[2023-08-30 15:39] LABS: HEMATOCRIT 41.6 % (42.0-52.0); HEMOGLOBIN 14.1 g/dl (13.5-17.5); MEAN CORPUSCULAR HEMOGLOBIN 31.8 pg (27.0-33.0); MEAN CORPUSCULAR HGB CONC 33.9 g/dl (32.0-36.5); MEAN CORPUSCULAR VOLUME 93.7 fl (80.0-96.0); PLATELET COUNT, AUTOMATED 345 10^3/uL (150-450); RED BLOOD COUNT 4.44 10^6/uL (4.30-6.10); WHITE BLOOD COUNT 7.9 10^3/uL (4.0-10.0)
[2023-08-30 15:48] LABS: HEMOGLOBIN A1c 5.3 % (4.0-6.0)
== END ==
LOC: M PLALAB 14:22
PROVIDERS: ATTEND Family Medicine
DX: R73.01 Impaired fasting glucose (principal)

== ENCOUNTER → 2023-09-16 | Outpatient (REF) | payer OTHER | LOC: M SFHCPLAZ 15:25 | PROVIDERS: ATTEND Student in an Organized Health Care Education/Training Program | DX: N40.0 Benign prostatic hyperplasia without lower urinary tract symptoms (principal); N28.9 Disorder of kidney and ureter, unspecified ==

== ENCOUNTER → 2023-09-24 | Outpatient (CLI) | payer OTHER ==
[2023-09-24 13:11] LABS: PSA SCREENING 1.24 NG/ML (< 4.00)
[2023-09-24 13:14] LABS: ALBUMIN 3.9 G/DL (3.2-5.2); ALKALINE PHOSPHATASE 117 U/L (46-116); ALT/SGPT 42 U/L (7.0-40); AST/SGOT 33 U/L (<34); BILIRUBIN,TOTAL 0.3 MG/DL (0.3-1.2); BLOOD UREA NITROGEN 24 MG/DL (9-23); CARBON DIOXIDE LEVEL 28 MMOL/L (20-31); CHLORIDE LEVEL 103 MMOL/L (98-107); CREATININE FOR GFR 1.06 MG/DL (0.70-1.30); GLOMERULAR FILTRATION RATE > 60.0 (>56); GLUCOSE, FASTING 98 MG/DL (60-100); POTASSIUM SERUM 5.1 MMOL/L (3.5-5.1); SODIUM LEVEL 137 MMOL/L (136-145); TOTAL PROTEIN 6.8 G/DL (5.7-8.2)
== END ==
LOC: M PLALAB 10:00
PROVIDERS: ATTEND Student in an Organized Health Care Education/Training Program
DX: N40.0 Benign prostatic hyperplasia without lower urinary tract symptoms (principal); N28.9 Disorder of kidney and ureter, unspecified

== ENCOUNTER 2023-09-28 09:16 | Emergency (ER) | payer OTHER ==
[~2023-09-28] VITALS: Ht 180.3 cm; Wt 81.7 kg
[2023-09-28 09:18] VITALS: BP 135/83; TEMP 97.3; O2SAT 99
== END 2023-09-28 11:28 | disposition left against medical advice (07) ==
LOC: M ED 09:16
DX: Z53.21 Procedure and treatment not carried out due to patient leaving prior to being seen by health care provider (principal)

== ENCOUNTER → 2023-10-07 | Outpatient (REF) | payer OTHER | LOC: M SFHCPLAZ 09:17 | PROVIDERS: ATTEND Family Medicine | DX: C44.619 Basal cell carcinoma of skin of left upper limb, including shoulder (principal); C44.519 Basal cell carcinoma of skin of other part of trunk; L81.4 Other melanin hyperpigmentation ==

== ENCOUNTER → 2023-10-07 | Outpatient (CLI) | payer OTHER | LOC: M RAD 14:32 | PROVIDERS: ATTEND Student in an Organized Health Care Education/Training Program | DX: N28.1 Cyst of kidney, acquired (principal); N40.0 Benign prostatic hyperplasia without lower urinary tract symptoms ==

== ENCOUNTER → 2023-10-21 | Outpatient (CLI) | payer OTHER ==
[~2023-10-21] MED LIST changes: +PROHANCE 279.3MG/ML 15ML VIAL ONE; +PROHANCE 279.3MG/ML 5ML VIAL ONE
== END ==
LOC: M PLAIMG 08:09
PROVIDERS: ATTEND Family Medicine
DX: N28.9 Disorder of kidney and ureter, unspecified (principal)
CPT/HCPCS: 74183; A9576

== ENCOUNTER → 2024-01-06 | Outpatient (REF) | payer OTHER ==
[~2024-01-06] MED LIST changes: -PROHANCE 279.3MG/ML 15ML VIAL ONE; -PROHANCE 279.3MG/ML 5ML VIAL ONE
== END ==
LOC: M SFHCPLAZ 09:45
PROVIDERS: ATTEND Family Medicine
DX: C44.619 Basal cell carcinoma of skin of left upper limb, including shoulder (principal)

== ENCOUNTER → 2024-03-02 | Outpatient (REF) | payer OTHER | LOC: M SFHCPLAZ 15:45 | PROVIDERS: ATTEND Family Medicine | DX: C44.519 Basal cell carcinoma of skin of other part of trunk (principal) ==

== ENCOUNTER → 2024-03-16 | Outpatient (CLI) | payer OTHER | LOC: M PLAIMG 11:38 | PROVIDERS: ATTEND Family Medicine | DX: S02.2XXA Fracture of nasal bones, initial encounter for closed fracture (principal); Y93.9 Activity, unspecified; Y92.9 Unspecified place or not applicable ==

== ENCOUNTER → 2024-04-13 | Outpatient (REF) | payer OTHER ==
[~2024-04-13] MED LIST changes: +LIDO1PAD TOP; +OXYC10TA3 PO; +TAMS1CAP17 PO; +VENTAER INH
== END ==
LOC: M SFHCPLAZ 17:18
PROVIDERS: ATTEND Family Medicine
DX: C44.529 Squamous cell carcinoma of skin of other part of trunk (principal)

== ENCOUNTER 2024-05-01 09:06 | Day surgery (SDC) | payer MEDICAID, OTHER ==
[~2024-05-01] VITALS: Ht 180.3 cm; Wt 89.2 kg
[2024-05-01] MEDS ORDERED: LIDOCAINE 2% 100MG/5ML SDV (FOR ANES.) As Ordered ONE (10:57)
[2024-05-01] MEDS ORDERED: ACETAMINOPHEN 1000MG/100ML IV BAG As Ordered ONE (10:57)
[2024-05-01] MEDS ORDERED: fentaNYL 100 MCG/2 ML INJECTION As Ordered ONE (10:57)
[2024-05-01] MEDS ORDERED: ONDANSETRON 4MG 2ML VIAL As Ordered ONE (10:57)
[2024-05-01] MEDS ORDERED: MIDAZOLAM INJ 2MG/2ML VIAL As Ordered ONE (10:57)
[2024-05-01] MEDS ORDERED: propofoL 200 MG/20 ML VIAL As Ordered ONE (10:57)
[2024-05-01] MEDS ORDERED: KETOROLAC 60MG 2ML VIAL As Ordered ONE (11:06)
[2024-05-01] MEDS ORDERED: fentaNYL 100 MCG/2 ML INJECTION IV PRN (11:15)
[2024-05-01] MEDS ORDERED: ONDANSETRON 4MG 2ML VIAL IV PRN (11:15)
[2024-05-01] MEDS ORDERED: MEPERIDINE 25 MG/ML 1ML VIAL IV PRN (11:15)
[2024-05-01] MEDS: oxyCODONE 5MG TAB PO PRN (12:01)
[2024-05-01 12:32] VITALS: BP 157/99
[2024-05-01] MEDS: hydrALAZINE 20MG/ML 1ML VIAL IV PRN (12:32)
[2024-05-01 13:37] VITALS: BP 165/90; TEMP 97.9; O2SAT 99
== END 2024-05-01 14:25 | disposition home or self-care (01) ==
LOC: M SDC 09:06
PROVIDERS: ATTEND Orthopaedic Surgery Hand Surgery
DX: G56.02 Carpal tunnel syndrome, left upper limb (principal); G50.0 Trigeminal neuralgia; I10 Essential (primary) hypertension; E78.00 Pure hypercholesterolemia, unspecified; N40.0 Benign prostatic hyperplasia without lower urinary tract symptoms; C43.59 Malignant melanoma of other part of trunk; C43.30 Malignant melanoma of unspecified part of face; Z79.82 Long term (current) use of aspirin; Z79.899 Other long term (current) drug therapy; G43.909 Migraine, unspecified, not intractable, without status migrainosus; Z86.14 Personal history of Methicillin resistant Staphylococcus aureus infection
CPT/HCPCS: 29848; J0131; J0360; J0665; J1100; J1885; J2250; J2405; J3010

== ENCOUNTER → 2024-11-07 | Outpatient (CLI) | payer OTHER ==
[~2024-11-07] MED LIST changes: +MORP-138 PO; -MORP15TASA PO
== END ==
LOC: M PLAIMG 13:22
PROVIDERS: ATTEND Nurse Practitioner Family
DX: M25.562 Pain in left knee (principal); M25.561 Pain in right knee; Z96.651 Presence of right artificial knee joint

== ENCOUNTER → 2024-11-07 | Outpatient (CLI) | payer OTHER ==
[2024-11-07 17:24] LABS: PLATELET COUNT, AUTOMATED 344 10^3/uL (150-450)
[2024-11-07 17:45] LABS: CREATININE, URINE 33.3 MG/DL; MALB URINE SIEMENS < 3.0 MG/L
[2024-11-07 17:46] LABS: ALT/SGPT 38.0 U/L (7.0-40); AST/SGOT 31.0 U/L (<34); CALCIUM LEVEL 8.9 MG/DL (8.5-10.1); CARBON DIOXIDE LEVEL 23.0 MMOL/L (20-31); CHLORIDE LEVEL 104.0 MMOL/L (98-107); CHOLESTEROL LEVEL 217.0 MG/DL (<200); CHOLESTEROL RISK RATIO 2.82 (<5); CREATININE FOR GFR 1.05 MG/DL (0.70-1.30); GLOMERULAR FILTRATION RATE 82.8 (>56); LDL CHOLESTEROL 92.3 MG/DL (<100); NON-HDL-C 140.1 MG/DL; POTASSIUM SERUM 4.1 MMOL/L (3.5-5.1); SODIUM LEVEL 142.0 MMOL/L (136-145); TRIGLYCERIDES LEVEL 239.0 MG/DL (<150)
== END ==
LOC: M PLALAB 13:19
PROVIDERS: ATTEND Family Medicine
DX: J30.89 Other allergic rhinitis (principal); G89.4 Chronic pain syndrome; I10 Essential (primary) hypertension; E78.5 Hyperlipidemia, unspecified; E29.1 Testicular hypofunction

== ENCOUNTER → 2025-01-23 | Outpatient (CLI) | payer OTHER ==
[2025-01-23 15:32] LABS: PLATELET COUNT, AUTOMATED 316 10^3/uL (150-450)
[2025-01-23 15:59] LABS: ALT/SGPT 28 U/L (7.0-40); AST/SGOT 25 U/L (<34); CALCIUM LEVEL 8.8 MG/DL (8.5-10.1); CARBON DIOXIDE LEVEL 28 MMOL/L (20-31); CHLORIDE LEVEL 101 MMOL/L (98-107); CREATININE FOR GFR 0.94 MG/DL (0.70-1.30); GLOMERULAR FILTRATION RATE > 90.0 (>56); POTASSIUM SERUM 4.8 MMOL/L (3.5-5.1); SODIUM LEVEL 134 MMOL/L (136-145)
== END ==
LOC: M PLALAB 13:46
DX: R19.7 Diarrhea, unspecified (principal); Z12.5 Encounter for screening for malignant neoplasm of prostate

== ENCOUNTER → 2025-03-30 | Outpatient (CLI) | payer OTHER ==
[2025-03-30 15:44] LABS: ALT/SGPT 31.0 U/L (7.0-40); AST/SGOT 27.0 U/L (<34); BASO # 0.0 10^3/uL (0.0-0.2); BASO % 0.6 % (0.0-1.0); CALCIUM LEVEL 8.9 MG/DL (8.5-10.1); CARBON DIOXIDE LEVEL 23.0 MMOL/L (20-31); CHLORIDE LEVEL 107.0 MMOL/L (98-107); CREATININE FOR GFR 1.15 MG/DL (0.70-1.30); EOS # 0.3 10^3/uL (0.0-0.5); EOS % 4.9 % (0.0-3.0); GLOMERULAR FILTRATION RATE 74.2 (>56); LYMPH # 1.8 10^3/uL (1.5-5.0); LYMPH % 34.1 % (24.0-44.0); MAGNESIUM LEVEL 2.0 MG/DL (1.8-2.4); MONO # 0.6 10^3/uL (0.0-0.8); MONO % 12.0 % (2.0-8.0); NEUTROPHILS # 2.6 10^3/uL (1.5-8.5); NEUTROPHILS % 48.0 % (36.0-66.0); PLATELET COUNT, AUTOMATED 323 10^3/uL (150-450); POTASSIUM SERUM 4.6 MMOL/L (3.5-5.1); SODIUM LEVEL 140.0 MMOL/L (136-145)
== END ==
LOC: M PLALAB 13:22
PROVIDERS: ATTEND Family Medicine
DX: R19.7 Diarrhea, unspecified (principal); J18.9 Pneumonia, unspecified organism; R25.2 Cramp and spasm

== ENCOUNTER → 2025-04-02 | Outpatient (REF) | payer OTHER | LOC: M SFHCPLAZ 17:12 | PROVIDERS: ATTEND Family Medicine | DX: R19.7 Diarrhea, unspecified (principal) ==